=== PATIENT | male | born 1955 | race Caucasian/White ===

== ENCOUNTER 2018-06-09 10:28 | Emergency (ER) | payer BC ==
[~2018-06-09] VITALS: Wt 88.6 kg
[2018-06-09 10:31] VITALS: BP 138/71; PULSE 99; RESP 16
[2018-06-09] MEDS ORDERED: KETOROLAC 30 MG INJ IM STA (10:42)
[2018-06-09] MEDS ORDERED: ONDANSETRON (ODT) 4 MG TAB ODT STA (10:42)
[2018-06-09] MEDS ORDERED: ACETAMINOPHEN 325 MG TAB PO ONE (11:00)
[2018-06-09] MEDS ORDERED: OSEL75CA23 PO (11:42)
[2018-06-09] MEDS ORDERED: IBUP-1542 PO (11:42)
[2018-06-09] MEDS ORDERED: D-ME473S2 PO (11:42)
--- NOTE | 2018-06-09 11:45 | ERD ---
ER Documentation Chief Complaint Chief Complaint body aches,chills, feels tired x 2 days HPI 62-year-old male presents with 2-day history of body aches, cough and fever. Is referred by primary doctor for evaluation for flulike symptoms. There is no history of vomiting, abdominal pain, chest pain. ROS All systems reviewed and are negative except as per history of present illness. Medications Home Meds Active Scripts Oseltamivir Phosphate* (Tamiflu*) 75 Mg Capsule, 75 MG PO BID for 5 Days, CAP Prov:SOURAV DEE MD 06/09/18 Dextromethorphan Hb-Promethazine Hcl* (Promethazine DM* Syrup) 473 Ml Syrup, 5 ML PO Q6 PRN for COUGH for 5 Days, ML Prov:SOURAV DEE MD 06/09/18 Ibuprofen* (Motrin*) 600 Mg Tab, 600 MG PO Q6, #20 TAB Prov:SOURAV DEE MD 06/09/18 Allergies Allergies: Coded Allergies: Penicillins (Verified Allergy, Mild, 06/09/18) PMhx/Soc History of Surgery: Yes (RT ARM W/ [facility] YRS; hernia surgery) Anesthesia Reaction: No Hx Neurological Disorder: No Hx Respiratory Disorders: No Hx Cardiac Disorders: No Hx Psychiatric Problems: No Hx Miscellaneous Medical Probl: No Hx Alcohol Use: No Hx Substance Use: No Hx Tobacco Use: No Smoking Status: Never smoker FmHx Family History: No diabetes, No coronary disease, No other Physical Exam Vitals Vital Signs Date Temp Pulse Resp B/P (MAP) Pulse Ox O2 O2 Flow FiO2 Time Delivery Rate 06/09/18 100.4 10:51 06/09/18 100.4 99 16 138/71 96 10:31 (93) Physical Exam Const: No acute distress Head: Atraumatic Eyes: Normal Conjunctiva ENT: Normal External Ears, Nose and Mouth. TMs and oropharynx normal. Neck: Full range of motion. No meningismus. Resp: Clear to auscultation bilaterally dry cough without rales, wheezing or retractions. Cardio: Regular rate and rhythm, no murmurs Abd: Soft, non tender, non distended. Normal bowel sounds Skin: No petechiae or rashes Back: No midline or flank tenderness Ext: No cyanosis, or edema Neur: Awake and alert Psych: Normal Mood and Affect Results 24 hrs Current Medications Medications Dose Sig/Torres Start Time Status Last (Trade) Ordered Route PRN Stop Time Admin Dose Reason Admin Ketorolac 30 mg ONCE STAT 06/09/18 DC 06/09/18 Tromethamine IM 10:42 06/09/18 10:50 (Toradol) 10:44 650 mg ONCE ONCE 06/09/18 DC 06/09/18 Acetaminophen PO 11:00 06/09/18 10:51 (Tylenol 11:01 Tab) Ondansetron 8 mg ONCE STAT 06/09/18 DC 06/09/18 HCl (Zofran ODT 10:42 06/09/18 10:50 Odt) 10:44 Procedures/MDM Influenza swab negative. Chest X-ray 1V Interpreted by me: Soft Tissue: No acute abnormalities Bones: No acute abnormalities Mediastinum/Cardiac Silhouette/Lungs: No acute abnormalities. Impression- normal 1 view chest x-ray Was given Toradol, Zofran and Tylenol. Patient presents with flulike symptoms, myalgias, cough without evidence of pneumonia, hypoxemia rest or distress or signs of abdominal pain or chest pain. He will be treated with Tamiflu despite negative influenza swab given presenting symptoms. He will be treated as well with ibuprofen, promethazine DM, primary follow-up and return precautions. The patient was stable with no new complaints during the ER course. Clinically, there is no current evidence to suggest meningitis, sepsis, acute abdomen, pneumonia, stroke, acute coronary syndrome, pulmonary embolism, aortic di ssection or any other emergent condition appearing to require further evaluation or hospitalization. Patient counseled regarding my diagnostic impression and care plan. Prior to discharge all questions answered. Pt agrees with treatment plan and understands strict return precautions. Pt is instructed to follow up with primary care provider within 24-48 hours. Precautionary instructions provided including instructions to return to the ER if not improving or for any worsening or changing symptoms or concerns. Departure Diagnosis: Primary Impression: Influenza-like symptoms Condition: Stable Patient Instructions: Influenza (Adult), Uri, Viral, No Abx (Adult) Referrals: NO PRIMARY,CARE PHYSICIAN (PCP) Additional Instructions: Flu test negative and x-ray normal. We will treat for influenza however. Recheck for new or worsening symptoms with primary care doctor. Okay to take Tylenol every 4 hours as well for fever. Drink plenty of fluids at home. SOURAV DEE MD Jun 09, 2018 11:45
== END 2018-06-09 12:12 | disposition home or self-care (01) ==
LOC: FTE 10:28
DX: J11.1 Influenza due to unidentified influenza virus with other respiratory manifestations (principal)
CPT/HCPCS: 71045; 87400; 96372; J1885; Z7502; Z7610